=== PATIENT | male | born 1990 | race Caucasian/White ===

== ENCOUNTER 2019-12-16 19:20 | Emergency (ER) | payer OTHER ==
[~2019-12-16] VITALS: Ht 188 cm; Wt 81.7 kg
[~2019-12-16 19:20] MED LIST: HYDROXYZINE HCL25 M1 GT; HYDROXYZINE HCL25 M1 PO; NORCO 5-325 TA1 EACH PO; PREDNISONE 20 M20 M1 PO; ULTRAM 50MG TAB50 MG PO; ZPAK PO
[2019-12-16 19:28] VITALS: BP 146/103
[2019-12-16] MEDS ORDERED: CENTANY30 GM TOP (19:28)
[2019-12-16] MEDS ORDERED: DOXYCYCLINE 10100 MG PO (19:28)
== END 2019-12-16 19:35 | disposition home or self-care (01) ==
LOC: M.ERS 19:20
DX: L03.115 Cellulitis of right lower limb (principal); I10 Essential (primary) hypertension; F17.210 Nicotine dependence, cigarettes, uncomplicated; Z86.14 Personal history of Methicillin resistant Staphylococcus aureus infection

== ENCOUNTER 2020-06-24 05:36 | Emergency (ER) | payer OTHER ==
[~2020-06-24] VITALS: Ht 188 cm; Wt 90.7 kg
[~2020-06-24 05:36] MED LIST changes: +CENTANY30 GM TOP; +DOXYCYCLINE 10100 MG PO
[2020-06-24] MEDS ORDERED: SUBOXONE 8 MG-1 EAC3 SUBLING (05:54)
[2020-06-24] MEDS ORDERED: BACTRIM DS TAB1 EACH PO (06:23)
[2020-06-24] MEDS ORDERED: KEFLEX500 M1 PO (06:23)
[2020-06-24 06:35] VITALS: BP 140/88
== END 2020-06-24 06:35 | disposition home or self-care (01) ==
LOC: M.ERS 05:36
DX: L02.811 Cutaneous abscess of head [any part, except face] (principal); F15.10 Other stimulant abuse, uncomplicated; I10 Essential (primary) hypertension; F17.210 Nicotine dependence, cigarettes, uncomplicated; Z79.899 Other long term (current) drug therapy

== ENCOUNTER 2020-12-19 23:29 | Emergency (ER) | payer OTHER ==
[~2020-12-19] VITALS: Ht 188 cm; Wt 102.1 kg
[~2020-12-19 23:29] MED LIST changes: +BACTRIM DS TAB1 EACH PO; +KEFLEX500 M1 PO; +SUBOXONE 8 MG-1 EAC3 SUBLING
[2020-12-20] MEDS ORDERED: CEPHALEXIN500 MG PO (00:14)
[2020-12-20 00:23] VITALS: BP 147/98
== END 2020-12-20 00:23 | disposition home or self-care (01) ==
LOC: M.ERS 23:29
DX: F42.4 Excoriation (skin-picking) disorder (principal); I10 Essential (primary) hypertension; F17.210 Nicotine dependence, cigarettes, uncomplicated